=== PATIENT | female | born 1955 | race Caucasian/White ===

== ENCOUNTER 2017-03-19 08:50 | Day surgery (SDC) | payer BC ==
[~2017-03-19] VITALS: Ht 162.6 cm; Wt 62.1 kg
[~2017-03-19 08:50] MED LIST: CEFAZOLIN 1 GM IVPB PREMIX 50 ML IV ONE
[2017-03-19] MEDS ORDERED: LR 1,000 ML IV SCH (11:33)
[2017-03-19] MEDS ORDERED: D5/0.45 NS 1,000 ML IV SCH (11:43)
[2017-03-19] MEDS ORDERED: HYDROmorphone 1 MG INJ. 1 MG/ML AMPUL IVP PRN (11:45)
[2017-03-19] MEDS ORDERED: HYDROcodone/ACETAMIN 5-325 MG TAB (NORCO/ VICODIN) PO PRN ×2 (11:45)
[2017-03-19] MEDS ORDERED: METOCLOPRAMIDE HCL 10 MG/2 ML VIAL IVP PRN (11:45)
[2017-03-19] MEDS ORDERED: MORPHINE 4 MG/ML INJ. SYRINGE IVP PRN ×3 (11:45)
[2017-03-19 12:58] VITALS: BP_SYST 118
[2017-03-19] MEDS ORDERED: ONDANSETRON HCL 4 MG/2 ML VIAL IVP ONE (18:00)
[2017-03-19] MEDS ORDERED: fentaNYL CITRATE 250 MCG/5 ML AMP IV ONE (18:00)
[2017-03-19] MEDS ORDERED: ROCURONIUM BROMIDE 10 MG/ML (ZEMURON) IV ONE (18:00)
[2017-03-19] MEDS ORDERED: ATROPINE SULFATE 0.4 MG/ML VIAL IVP ONE (18:00)
[2017-03-19] MEDS ORDERED: PROPOFOL 200MG/ 20ML VIAL (DIPRIVAN) IV ONE (18:00)
[2017-03-19] MEDS ORDERED: MIDAZOLAM HCL 5 MG/5 ML VIAL IVP ONE (18:00)
[2017-03-19] MEDS ORDERED: SEVOFLURANE 15 MIN GAS INH ONE (18:00)
[2017-03-19] MEDS ORDERED: NS IRRIG SOLN 1000 ML IR ONE (18:00)
[2017-03-19] MEDS ORDERED: BUPIVACAINE /EPINEPHRINE/PF 0.25% 30 ML VIAL INJ ONE (18:00)
== END 2017-03-19 13:20 | disposition home or self-care (01) ==
LOC: SMU 08:50 → SDS 08:50
PROVIDERS: ATTEND Colon & Rectal Surgery
DX: R22.42 Localized swelling, mass and lump, left lower limb (principal); D64.9 Anemia, unspecified; E11.9 Type 2 diabetes mellitus without complications; I10 Essential (primary) hypertension; E78.00 Pure hypercholesterolemia, unspecified; H43.813 Vitreous degeneration, bilateral; E55.9 Vitamin D deficiency, unspecified; Z90.49 Acquired absence of other specified parts of digestive tract
CPT/HCPCS: 27339; 82962; 88304; J0690; J7120; 88305; J0461; J2250; J2405; J2704; J3010; J3490

== ENCOUNTER 2019-02-17 05:50 | Day surgery (SDC) | payer BC ==
[~2019-02-17] VITALS: Ht 162.6 cm; Wt 64.9 kg
[2019-02-17] MEDS ORDERED: CEFAZOLIN SOD 1 GM in D5W 50 ML IV ONE (07:00)
[2019-02-17] MEDS ORDERED: POLYMYXIN 500,000/BACIT.10,000 UNITS in NS IRR 1 L IR ONE (07:52)
[2019-02-17] MEDS ORDERED: ROCURONIUM BROMIDE 10 MG/ML (ZEMURON) IV ONE (07:55)
[2019-02-17] MEDS ORDERED: GLYCOPYRROLATE 0.2 MG/ML VIAL IJ ONE (07:55)
[2019-02-17] MEDS ORDERED: ONDANSETRON HCL 4 MG/2 ML VIAL IVP ONE (07:55)
[2019-02-17] MEDS ORDERED: PROPOFOL 200MG/ 20ML VIAL (DIPRIVAN) IV ONE (07:55)
[2019-02-17] MEDS ORDERED: WATER FOR IRRIGATION,STERILE 1,000 ML IRRIG.SOLN IR ONE (07:55)
[2019-02-17] MEDS ORDERED: fentaNYL CITRATE 250 MCG/5 ML AMP IV ONE (07:55)
[2019-02-17] MEDS ORDERED: PHENYLEPHRINE HCL 10 MG/ML VIAL (NEOSYNEPHRINE) IV ONE (07:55)
[2019-02-17] MEDS ORDERED: MIDAZOLAM HCL 5 MG/5 ML VIAL IVP ONE (07:55)
[2019-02-17] MEDS ORDERED: SEVOFLURANE 15 MIN GAS INH ONE (07:55)
[2019-02-17] MEDS ORDERED: LR 1,000 ML IV SCH (08:20)
[2019-02-17] MEDS ORDERED: MORPHINE 4 MG/ML INJ. SYRINGE IVP PRN ×3 (08:30)
[2019-02-17] MEDS ORDERED: METOCLOPRAMIDE HCL 10 MG/2 ML VIAL IVP PRN (08:30)
[2019-02-17] MEDS ORDERED: D5/0.45 NS 1,000 ML IV SCH (09:53)
[2019-02-17] MEDS ORDERED: HYDROcodone/ACETAMIN 5-325 MG TAB (NORCO/ VICODIN) PO PRN ×2 (10:00)
[2019-02-17] MEDS ORDERED: HYDROmorphone 1 MG INJ. 1 MG/ML AMPUL IVP PRN (10:00)
[2019-02-17 10:21] VITALS: BP_SYST 118
== END 2019-02-17 10:50 | disposition home or self-care (01) ==
LOC: SDS 05:50 → SMU 05:50 → SDS 10:50
PROVIDERS: ATTEND Colon & Rectal Surgery
DX: K43.0 Incisional hernia with obstruction, without gangrene (principal); I10 Essential (primary) hypertension; E11.9 Type 2 diabetes mellitus without complications; E78.00 Pure hypercholesterolemia, unspecified; Z88.2 Allergy status to sulfonamides; Z90.49 Acquired absence of other specified parts of digestive tract; Z79.899 Other long term (current) drug therapy; Z98.890 Other specified postprocedural states; Z79.84 Long term (current) use of oral hypoglycemic drugs
CPT/HCPCS: 49561; 49568; C1781; J0690; J2250; J2370; J2405; J2704; J3010; J3490; J7060; J7120